=== PATIENT | female | born 2000 | race Caucasian/White ===

== ENCOUNTER 2024-09-30 18:00 | Emergency (ER) | payer OTHER ==
[~2024-09-30] VITALS: Ht 162.6 cm; Wt 81.8 kg
[~2024-09-30 18:00] MED LIST: ALBU18HF12 IH
[2024-09-30 18:03] VITALS: BP 133/87; PULSE 88; RESP 18; TEMP 98; O2SAT 99
== END 2024-09-30 20:40 | disposition home or self-care (01) ==
LOC: EMS 18:00
DX: S99.922A Unspecified injury of left foot, initial encounter (principal); M79.675 Pain in left toe(s); J45.909 Unspecified asthma, uncomplicated; Z79.899 Other long term (current) drug therapy; W22.8XXA Striking against or struck by other objects, initial encounter; Y93.89 Activity, other specified; Y92.89 Other specified places as the place of occurrence of the external cause; Y99.8 Other external cause status
CPT/HCPCS: 99283